=== PATIENT | male | born 1965 | race Caucasian/White ===

== ENCOUNTER 2021-01-03 16:53 | Inpatient (IN) | payer OTHER ==
[~2021-01-03] VITALS: Ht 177.8 cm; Wt 109.6 kg
--- NOTE | 2021-01-03 17:00 | NUR ---
THIS IS A 55 YO M BIB EMS FROM [facility], [place], OPERATED BY [facility] FOR COVID PNA, RF. PT PRESENTS ON BIPAP. PT TACHYCARDIC, FEBRILE, TACHYPNEIC. LACTIC 3.2 LENS BLOCKER. PIVX2 LENS BLOCKER. PT REPORTS TESTING POSITIVE FOR COVID ON SATURDAY LAST WEEK. HAS FELT SOB X10 DAYS. AT BEDSIDE. PT CONNECTED TO ALL MONITORING.
--- NOTE | 2021-01-03 17:10 | NUR ---
PER EMS SPOUSE CALLED EMS INTITIALLY R/T AMS. UPON ARRIVAL TO THE HOME EMS FOUND PT TO BE UNRESPONSIVE, HYPOXIC AND CYANTIC RESOLVED AFTER BAGGING. PT CURRENTLY A&OX4.
[2021-01-03] MEDS ORDERED: PIPERACILLIN/TAZO/PMX 3.375GM 50 ML ONE (17:23)
[2021-01-03] MEDS ORDERED: SODIUM CHLORIDE 0.9% 1,000ML IVBOLUS ONE ×2 (17:30→19:00)
[2021-01-03] MEDS ORDERED: SODIUM CHLORIDE FLUSH 10ML SYR IVF ONE (17:30)
[2021-01-03] MEDS ORDERED: PIPERACILLIN/TAZO/PMX 3.375GM 50 ML IV ONE (17:30)
[2021-01-03] MEDS ORDERED: AMLODIPINE PO (17:31)
--- NOTE | 2021-01-03 17:33 | NUR ---
PER BLOOD CULTURES DRAWNX2 PAINTER AND PAPERHANGER APPRENTICE.
--- NOTE | 2021-01-03 18:03 | NUR ---
PT TRANSPORTED TO CT W/ ASSISTANCE OF THIS RN, RT AND 2 ED TECHS. RETURNED TO ROOM W/O INCIDENT. PT USED A TOTAL OF 3.5 O2 TANKS FOR TRANSPORT.
[2021-01-03] MEDS ORDERED: OMNIPAQUE 350 MG/ML, 100ML BOTTLE ONE (18:09)
[2021-01-03] MEDS ORDERED: ALBUTEROL (18:26)
--- NOTE | 2021-01-03 18:29 | NUR ---
PTS SPOUSE SLIME [phone] UPDATED PER PT REQUEST.
[2021-01-03] MEDS ORDERED: HEPARIN 25,000 UNITS/250ML PMX 250 ML ONE (18:39)
[2021-01-03] MEDS ORDERED: HEPARIN 5,000 UNITS/ML, 1ML ONE ×2 (18:39→18:40)
[2021-01-03] MEDS: HEPARIN 25,000 UNITS/250ML PMX 250 ML IV PRN (18:55)
[2021-01-03] MEDS ORDERED: HEPARIN 5,000 UNITS/ML, 1ML IV ONE (19:00)
--- NOTE | 2021-01-03 19:01 | NUR ---
REPORT GIVEN O ELÍAS WAGGONER. HEPARIN VERIFIED AND STARTED PER EMAR. PT VSS UNCHANGED. PT A&OX4. RESTING ON Yaphie W/ CALL LIGHT IN REACH AND SIDE RAILS UPX2. NADN. AWAITING ADMIT.
--- NOTE | 2021-01-03 19:06 | NUR ---
6 HR ANTI XA ORDERED PER PROTOCOL.
--- NOTE | 2021-01-03 19:45 | NUR ---
PT RESTING IN BED, PT ON BIPAP AT 100% IN THE MID 80% WITH A RR IN HIGH 30'S TO LOW 40'S. RT, PRODUCTION OPERATIONS INSPECTOR AND PROVIDER AWARE OF PT O2 SATS. PT ON MONITOR WITH PT MEDICATED PER MAR
[2021-01-03] MEDS ORDERED: SODIUM CHLORIDE 0.9% 1,000 ML IV SCH (20:00)
[2021-01-03] MEDS ORDERED: PROMETHAZINE 25 MG/ML, 1ML IM PRN (20:00)
[2021-01-03] MEDS ORDERED: BISACODYL 10 MG SUPP PR PRN ×2 (20:00→22:30)
[2021-01-03] MEDS ORDERED: DOCUSATE 100 MG CAPSULE PO PRN (20:00)
[2021-01-03] MEDS ORDERED: ONDANSETRON ODT 4 MG PO PRN (20:00)
[2021-01-03] MEDS ORDERED: ONDANSETRON 2MG/ML, 2ML IVPush PRN (20:00)
[2021-01-03] MEDS ORDERED: FAMOTIDINE 20 MG/2 ML ONE (20:49)
[2021-01-03] MEDS ORDERED: ASCORBIC ACID 500 MG TABLET PO SCH (21:00)
[2021-01-03] MEDS ORDERED: DEXAMETHASONE 4 MG/ML, 1ML IVPush SCH (21:00)
[2021-01-03] MEDS ORDERED: FAMOTIDINE 20 MG/2 ML IVPush SCH (21:00)
[2021-01-03 21:04] VITALS: BP 152/90
[2021-01-03] MEDS ORDERED: ALBUTEROL SULFATE 2.5 MG/3 ML NPPB PRN (21:30)
[2021-01-03 21:38] LABS: MEAN CORPUSCULAR HEMOGLOBIN 33.8 pg (27.5-34.5); MEAN CORPUSCULAR HGB CONC 34.4 g/dL (33.2-36.2); MEAN PLATELET VOLUME 7.1 fL (7.4-10.4); PLATELET COUNT 153 x10^3/uL (130-400); RED BLOOD COUNT 4.35 x10^6/uL (4.38-5.82); RED CELL DISTRIBUTION WIDTH 13.1 % (9.4-14.8)
[2021-01-03 21:50] LABS: ALANINE AMINOTRANSFERASE 61 U/L (12-78); ALBUMIN 2.4 g/dL (3.4-5.0); ANION GAP 11 mmol/L (5-15); CALCIUM 7.8 mg/dL (8.5-10.1); CHLORIDE 107 mmol/L (98-107); CREATININE 2.06 mg/dL (0.7-1.3)
[2021-01-03] MEDS ORDERED: ROCURONIUM 10MG/ML,5ML ONE ×2 (21:52)
[2021-01-03 21:53] LABS: ALKALINE PHOSPHATASE 69 U/L (45-117); BILIRUBIN,TOTAL 1.4 mg/dL (0.2-1.0); TOTAL PROTEIN 7.1 g/dL (6.4-8.2)
[2021-01-03] MEDS ORDERED: CEFTRIAXONE PMX 2GM/50ML 50 ML IVPB SCH (22:00)
[2021-01-03 22:08] LABS: MD YES
[2021-01-03 22:09] LABS: BAND#(MANUAL) 0.53 x10^3/uL; BANDS%(MANUAL) 4 % (0-7); LYMPH#(MANUAL) 0.26 x10^3/uL (1-3.4); LYMPHS% (MANUAL) 2 % (22-44); METAMYELOCYTES% (MANUAL) 3 % (0-1); MONOS% (MANUAL) 3 % (2-9); SEG#(MANUAL) 11.62 x10^3/uL (1.8-6.8); SEGS% (MANUAL) 88 % (42-75)
[2021-01-03 22:10] LABS: ANISOCYTOSIS 1+; OVALOCYTES 1+; TEAR DROPS 1+
[2021-01-03 22:11] LABS: ECHINOCYTES 1+; SCHISTOCYTES 1+
[2021-01-03 22:12] LABS: <PLATELET ESTIMATE> ADEQUATE; <PLT MORPHOLOGY> NORMAL PLT MORPH; PMNS WITH VACUOLES 1+; TOXIC GRAN 1+
[2021-01-03 22:26] LABS: PELGER-HUET CELLS 1+
[2021-01-03] MEDS ORDERED: SENNA/DOCUSATE TABLET NG PRN (22:30)
[2021-01-03] MEDS ORDERED: LIDOCAINE-MPF 1%, 2ML ENDO PRN (22:30)
[2021-01-03] MEDS ORDERED: LACTULOSE 20 GM/30 ML UDC NG PRN (22:30)
[2021-01-03] MEDS ORDERED: PHARMACY MAY ADJ FOR RENAL FX MC SCH (22:30)
[2021-01-03] MEDS ORDERED: FENTANYL PF 1,000 MCG in SODIUM CHLORIDE 0.9% 80 ML IV PRN (22:30)
[2021-01-03] MEDS ORDERED: PROPOFOL 100 ML IV PRN (22:30)
[2021-01-03] MEDS ORDERED: SENNA 176 MG/5 ML ORAL SOL NG PRN (22:30)
[2021-01-03] MEDS: PROPOFOL 100 ML IV PRN (22:47)
[2021-01-03] MEDS: FENTANYL PF 1,000 MCG in SODIUM CHLORIDE 0.9% 80 ML IV PRN (22:48)
[2021-01-03] MEDS ORDERED: REMDESIVIR 200 MG in SODIUM CHLORIDE 0.9% 250 ML IVPB ONE (23:00)
[2021-01-03] MEDS ORDERED: AZITHROMYCIN 500 MG in SODIUM CHLORIDE 0.9% 250 ML IV SCH (23:00)
[2021-01-03] MEDS: ACETAMINOPHEN 325 MG TABLET PO PRN (23:19)
[2021-01-03 23:33] LABS: MICROSCOPIC INDICATED
[2021-01-04] MEDS: PROPOFOL 100 ML IV PRN ×4 (03:05→21:28)
[2021-01-04 04:29] LABS: BASOPHILS % (AUTO) 0 % (0-1); EOSINOPHILS % (AUTO) 0 % (1-7); LYMPHOCYTES % (AUTO) 3 % (22-44); MEAN CORPUSCULAR HEMOGLOBIN 33.5 pg (27.5-34.5); MEAN CORPUSCULAR HGB CONC 34.4 g/dL (33.2-36.2); MEAN PLATELET VOLUME 8.6 fL (7.4-10.4); MONOCYTES % (AUTO) 4 % (2-9); NEUTROPHILS % (AUTO) 93 % (42-75); PLATELET COUNT 193 x10^3/uL (130-400); RED BLOOD COUNT 4.18 x10^6/uL (4.38-5.82); RED CELL DISTRIBUTION WIDTH 13.3 % (9.4-14.8)
[2021-01-04 04:37] LABS: ALBUMIN 2.3 g/dL (3.4-5.0); ANION GAP 8 mmol/L (5-15); CALCIUM 7.4 mg/dL (8.5-10.1); CHLORIDE 110 mmol/L (98-107)
[2021-01-04 04:47] LABS: ALANINE AMINOTRANSFERASE 59 U/L (12-78); ALKALINE PHOSPHATASE 69 U/L (45-117); BILIRUBIN,TOTAL 0.4 mg/dL (0.2-1.0); CHOL/HDL RATIO 3.6; CHOLESTEROL, TOTAL 120 mg/dL (140-239); CREATININE 2.98 mg/dL (0.7-1.3); HDL CHOL % 28 % (26-37); HDL CHOLESTEROL (DIRECT) 33 mg/dL (40-60); LDL CHOLESTEROL,CALCULATED 54 mg/dL (54-169); LDL/HDL RATIO 1.6 (0.5-3.0); TOTAL PROTEIN 6.8 g/dL (6.4-8.2); TRIGLYCERIDES 164 mg/dL (50-200); VLDL CHOLESTEROL 33 mg/dL (0-25)
[2021-01-04 05:14] LABS: MD SCAN
[2021-01-04] MEDS ORDERED: ONDANSETRON 2MG/ML, 2ML IV PRN (08:00)
[2021-01-04] MEDS: CHOLECALCIFEROL 5,000u TAB PO SCH (08:49)
[2021-01-04] MEDS: ASCORBIC ACID 500 MG TABLET PO SCH ×2 (08:50→17:00)
[2021-01-04] MEDS: ZINC SULFATE 220 MG CAPSULE PO SCH (08:50)
[2021-01-04] MEDS: THIAMINE 100MG TABLET PO SCH (08:50)
[2021-01-04] MEDS ORDERED: CHOLECALCIFEROL 5,000u TAB PO SCH (09:00)
[2021-01-04] MEDS ORDERED: ZINC SULFATE 220 MG CAPSULE PO SCH (09:00)
[2021-01-04] MEDS ORDERED: TOCILIZUMAB 800 MG in SODIUM CHLORIDE 0.9% 60 ML IVPB ONE (09:30)
--- NOTE | 2021-01-04 09:45 | NUR ---
TF per RD recs (01/04): Vital HP w/ end goal rate of 60mL/hr (on propofol); 65mL/hr (OFF propofol) Addendum: 01/04/21 at [address] Amended: Links added.
[2021-01-04] MEDS: SODIUM CHLORIDE 0.9% 1,000 ML IV SCH (10:30)
[2021-01-04] MEDS: FENTANYL PF 1,000 MCG in SODIUM CHLORIDE 0.9% 80 ML IV PRN (18:05)
[2021-01-04] MEDS: HEPARIN 25,000 UNITS/250ML PMX 250 ML IV PRN (18:06)
[2021-01-04] MEDS: FAMOTIDINE 20 MG/2 ML IVPush SCH (21:27)
[2021-01-04] MEDS: CEFTRIAXONE PMX 2GM/50ML 50 ML IVPB SCH (21:27)
[2021-01-04] MEDS ORDERED: REMDESIVIR 100 MG in SODIUM CHLORIDE 0.9% 250 ML IVPB SCH (23:00)
[2021-01-04] MEDS: DEXAMETHASONE 4 MG/ML, 1ML IVPush SCH (23:12)
[2021-01-04] MEDS: REMDESIVIR 50 MG in SODIUM CHLORIDE 0.9% 250 ML IVPB SCH (23:12)
[2021-01-05] MEDS: PROPOFOL 100 ML IV PRN ×6 (00:45→22:26)
[2021-01-05] MEDS: AZITHROMYCIN 500 MG in SODIUM CHLORIDE 0.9% 250 ML IV SCH (02:41)
[2021-01-05 05:34] LABS: BASOPHILS % (AUTO) 1 % (0-1); EOSINOPHILS % (AUTO) 0 % (1-7); LYMPHOCYTES % (AUTO) 2 % (22-44); MEAN CORPUSCULAR HEMOGLOBIN 33.7 pg (27.5-34.5); MEAN CORPUSCULAR HGB CONC 34.1 g/dL (33.2-36.2); MEAN PLATELET VOLUME 9.4 fL (7.4-10.4); MONOCYTES % (AUTO) 4 % (2-9); NEUTROPHILS % (AUTO) 94 % (42-75); PLATELET COUNT 208 x10^3/uL (130-400); RED BLOOD COUNT 3.68 x10^6/uL (4.38-5.82); RED CELL DISTRIBUTION WIDTH 13.8 % (9.4-14.8)
[2021-01-05 05:47] LABS: MD SCAN
[2021-01-05] MEDS: HEPARIN 5,000 UNITS/ML, 1ML IV PRN ×2 (06:08→18:10)
[2021-01-05 06:58] LABS: ALANINE AMINOTRANSFERASE 64 U/L (12-78); ALBUMIN 2.3 g/dL (3.4-5.0); ANION GAP 14 mmol/L (5-15); CALCIUM 7.4 mg/dL (8.5-10.1); CHLORIDE 111 mmol/L (98-107)
[2021-01-05 07:00] LABS: ALKALINE PHOSPHATASE 66 U/L (45-117); BILIRUBIN,TOTAL 0.3 mg/dL (0.2-1.0); CREATININE 5.64 mg/dL (0.7-1.3); TOTAL PROTEIN 6.3 g/dL (6.4-8.2)
[2021-01-05] MEDS: INSULIN LISPRO 100 UNITS/ML, PEN SQ-INSULIN SCH ×4 (07:58→21:17)
[2021-01-05] MEDS: ASCORBIC ACID 500 MG TABLET PO SCH ×2 (07:58→17:22)
[2021-01-05] MEDS: THIAMINE 100MG TABLET PO SCH (07:59)
[2021-01-05] MEDS: CHOLECALCIFEROL 5,000u TAB PO SCH (07:59)
[2021-01-05] MEDS: ZINC SULFATE 220 MG CAPSULE PO SCH (07:59)
[2021-01-05] MEDS: FENTANYL PF 1,000 MCG in SODIUM CHLORIDE 0.9% 80 ML IV PRN ×3 (09:54→23:59)
[2021-01-05] MEDS ORDERED: ALBUMIN HUMAN 25% 100 ML ONE ×2 (11:51→12:06)
[2021-01-05] MEDS: NOREPINEPHRINE 8 MG in SODIUM CHLORIDE 0.9% 242 ML IV PRN (11:53)
[2021-01-05] MEDS: SODIUM CHLORIDE 0.9% 1,000 ML IV SCH (12:08)
[2021-01-05] MEDS: HEPARIN 25,000 UNITS/250ML PMX 250 ML IV PRN (15:43)
[2021-01-05] MEDS: FAMOTIDINE 20 MG/2 ML IVPush SCH (21:17)
[2021-01-05] MEDS: CEFTRIAXONE PMX 2GM/50ML 50 ML IVPB SCH (21:18)
[2021-01-05] MEDS: REMDESIVIR 50 MG in SODIUM CHLORIDE 0.9% 250 ML IVPB SCH (23:59)
[2021-01-05] MEDS: DEXAMETHASONE 4 MG/ML, 1ML IVPush SCH (23:59)
[2021-01-06] MEDS: AZITHROMYCIN 500 MG in SODIUM CHLORIDE 0.9% 250 ML IV SCH (02:03)
[2021-01-06] MEDS: PROPOFOL 100 ML IV PRN ×4 (02:03→14:06)
[2021-01-06] MEDS: SODIUM CHLORIDE 0.9% 1,000 ML IV SCH ×2 (03:08→17:09)
[2021-01-06 04:07] LABS: BASOPHILS % (AUTO) 0 % (0-1); EOSINOPHILS % (AUTO) 0 % (1-7); LYMPHOCYTES % (AUTO) 1 % (22-44); MEAN CORPUSCULAR HEMOGLOBIN 33.2 pg (27.5-34.5); MEAN CORPUSCULAR HGB CONC 33.2 g/dL (33.2-36.2); MEAN PLATELET VOLUME 9.9 fL (7.4-10.4); MONOCYTES % (AUTO) 2 % (2-9); NEUTROPHILS % (AUTO) 97 % (42-75); PLATELET COUNT 248 x10^3/uL (130-400); RED CELL DISTRIBUTION WIDTH 14.2 % (9.4-14.8)
[2021-01-06 04:08] LABS: MD NO
[2021-01-06] MEDS: FENTANYL PF 2,500 MCG in SODIUM CHLORIDE 0.9% 200 ML IV PRN ×2 (04:13→14:09)
[2021-01-06 04:18] LABS: ANION GAP 12 mmol/L (5-15); CALCIUM 7.2 mg/dL (8.5-10.1); CHLORIDE 106 mmol/L (98-107); CREATININE 5.41 mg/dL (0.7-1.3)
[2021-01-06 04:19] LABS: TRIGLYCERIDES 298 mg/dL (50-200)
[2021-01-06] MEDS: INSULIN LISPRO 100 UNITS/ML, PEN SQ-INSULIN SCH ×4 (04:29→19:54)
[2021-01-06] MEDS: CHOLECALCIFEROL 5,000u TAB PO SCH (07:33)
[2021-01-06] MEDS: THIAMINE 100MG TABLET PO SCH (07:33)
[2021-01-06] MEDS: ASCORBIC ACID 500 MG TABLET PO SCH ×2 (07:33→17:09)
[2021-01-06] MEDS: ZINC SULFATE 220 MG CAPSULE PO SCH (07:33)
[2021-01-06] MEDS: HEPARIN 5,000 UNITS/ML, 1ML IV PRN (07:34)
[2021-01-06] MEDS: HEPARIN 25,000 UNITS/250ML PMX 250 ML IV PRN (07:36)
[2021-01-06] MEDS ORDERED: EPINEPHRINE 1 MG/ML, 1ML ONE (08:26)
[2021-01-06] MEDS ORDERED: ATROPINE SYRINGE 0.1 MG/ML, 10ML ONE (08:27)
[2021-01-06] MEDS: MIDAZOLAM HCL 50 MG in SODIUM CHLORIDE 0.9% 40 ML IV PRN ×2 (09:34→15:22)
[2021-01-06] MEDS ORDERED: LIDOCAINE 1%, 10ML ONE (15:24)
[2021-01-06] MEDS: ATROPINE SYRINGE 0.1 MG/ML, 10ML IVPush PRN ×2 (17:14→17:54)
[2021-01-06] MEDS: FAMOTIDINE 20 MG/2 ML IVPush SCH (21:39)
[2021-01-06] MEDS: CEFTRIAXONE PMX 2GM/50ML 50 ML IVPB SCH (22:23)
[2021-01-07] MEDS: REMDESIVIR 50 MG in SODIUM CHLORIDE 0.9% 250 ML IVPB SCH (00:12)
[2021-01-07] MEDS: DEXAMETHASONE 4 MG/ML, 1ML IVPush SCH (00:13)
[2021-01-07] MEDS: FENTANYL PF 2,500 MCG in SODIUM CHLORIDE 0.9% 200 ML IV PRN ×2 (00:15→10:55)
[2021-01-07] MEDS: HEPARIN 5,000 UNITS/ML, 1ML IV PRN (01:27)
[2021-01-07] MEDS: MIDAZOLAM HCL 50 MG in SODIUM CHLORIDE 0.9% 40 ML IV PRN ×3 (01:28→22:40)
[2021-01-07] MEDS: AZITHROMYCIN 500 MG in SODIUM CHLORIDE 0.9% 250 ML IV SCH (02:48)
[2021-01-07] MEDS: INSULIN LISPRO 100 UNITS/ML, PEN SQ-INSULIN SCH ×4 (04:30→21:17)
[2021-01-07 04:48] LABS: BASOPHILS % (AUTO) 0 % (0-1); EOSINOPHILS % (AUTO) 0 % (1-7); LYMPHOCYTES % (AUTO) 1 % (22-44); MEAN CORPUSCULAR HEMOGLOBIN 33.3 pg (27.5-34.5); MEAN CORPUSCULAR HGB CONC 33.5 g/dL (33.2-36.2); MEAN PLATELET VOLUME 10.3 fL (7.4-10.4); MONOCYTES % (AUTO) 2 % (2-9); NEUTROPHILS % (AUTO) 96 % (42-75); PLATELET COUNT 236 x10^3/uL (130-400); RED BLOOD COUNT 3.41 x10^6/uL (4.38-5.82); RED CELL DISTRIBUTION WIDTH 13.9 % (9.4-14.8)
[2021-01-07 04:56] LABS: ANION GAP 11 mmol/L (5-15); CHLORIDE 107 mmol/L (98-107); CREATININE 5.36 mg/dL (0.7-1.3)
[2021-01-07] MEDS ORDERED: SODIUM BICARBONATE 1 MEQ/ML, 50ML VIAL IVPush ONE (05:00)
[2021-01-07] MEDS ORDERED: SODIUM BICARB 8.4%, 50ML SYRINGE IVPush ONE (05:00)
[2021-01-07 05:50] LABS: ANISOCYTOSIS 1+; MD MORPH REVIEW ONLY
[2021-01-07 05:51] LABS: SCHISTOCYTES 1+
[2021-01-07 05:52] LABS: <PLATELET ESTIMATE> ADEQUATE; <PLT MORPHOLOGY> NORMAL PLT MORPH; ECHINOCYTES 1+
[2021-01-07] MEDS: CHOLECALCIFEROL 5,000u TAB PO SCH (08:50)
[2021-01-07] MEDS: THIAMINE 100MG TABLET PO SCH (08:50)
[2021-01-07] MEDS: ASCORBIC ACID 500 MG TABLET PO SCH ×2 (08:51→16:41)
[2021-01-07] MEDS: SODIUM CHLORIDE 0.9% 1,000 ML IV SCH ×2 (08:51→22:40)
[2021-01-07] MEDS: ZINC SULFATE 220 MG CAPSULE PO SCH (08:51)
[2021-01-07] MEDS: SENNA/DOCUSATE TABLET PO/NG SCH (08:52)
[2021-01-07] MEDS: HEPARIN 25,000 UNITS/250ML PMX 250 ML IV PRN (16:45)
[2021-01-07] MEDS: FAMOTIDINE 20 MG/2 ML IVPush SCH (21:17)
[2021-01-07] MEDS: CEFTRIAXONE PMX 2GM/50ML 50 ML IVPB SCH (22:40)
[2021-01-08] MEDS: DEXAMETHASONE 4 MG/ML, 1ML IVPush SCH ×2 (01:48→22:12)
[2021-01-08] MEDS: INSULIN LISPRO 100 UNITS/ML, PEN SQ-INSULIN SCH ×4 (03:25→19:58)
[2021-01-08] MEDS: AZITHROMYCIN 500 MG in SODIUM CHLORIDE 0.9% 250 ML IV SCH (03:26)
[2021-01-08 03:50] LABS: MEAN CORPUSCULAR HEMOGLOBIN 33.4 pg (27.5-34.5); MEAN CORPUSCULAR HGB CONC 33.5 g/dL (33.2-36.2); MEAN PLATELET VOLUME 10.4 fL (7.4-10.4); PLATELET COUNT 234 x10^3/uL (130-400); RED BLOOD COUNT 3.34 x10^6/uL (4.38-5.82)
[2021-01-08 03:56] LABS: ANION GAP 10 mmol/L (5-15); CALCIUM 7.3 mg/dL (8.5-10.1); CHLORIDE 107 mmol/L (98-107); CREATININE 4.94 mg/dL (0.7-1.3)
[2021-01-08 04:25] LABS: MD YES
[2021-01-08 04:33] LABS: ACANTHOCYTES 1+; ANISOCYTOSIS 1+; BAND#(MANUAL) 0.82 x10^3/uL; BANDS%(MANUAL) 9 % (0-7); EOS#(MANUAL) 0.09 x10^3/uL (0.0-0.4); EOS% (MANUAL) 1 % (1-7); LYMPH#(MANUAL) 0.36 x10^3/uL (1-3.4); LYMPHS% (MANUAL) 4 % (22-44); METAMYELOCYTES# (MANUAL) 0.09 x10^3/uL (0-0); METAMYELOCYTES% (MANUAL) 1 % (0-1); MONOS#(MANUAL) 0.09 x10^3/uL (0.3-2.7); MONOS% (MANUAL) 1 % (2-9); MYELOCYTES# (MANUAL) 0.09 x10^3/uL (0-0); MYELOCYTES% (MANUAL) 1 % (0-0); PELGER-HUET CELLS 1+; SEG#(MANUAL) 7.55 x10^3/uL (1.8-6.8); SEGS% (MANUAL) 83 % (42-75)
[2021-01-08 04:34] LABS: ECHINOCYTES 1+; PMNS WITH VACUOLES 1+; SCHISTOCYTES 1+
[2021-01-08 04:35] LABS: <PLATELET ESTIMATE> ADEQUATE; <PLT MORPHOLOGY> NORMAL PLT MORPH
[2021-01-08] MEDS: MIDAZOLAM HCL 100 MG in SODIUM CHLORIDE 0.9% 80 ML IV PRN ×3 (06:11→23:03)
[2021-01-08] MEDS: FENTANYL PF 2,500 MCG in SODIUM CHLORIDE 0.9% 200 ML IV PRN ×3 (06:49→23:04)
[2021-01-08] MEDS: CHOLECALCIFEROL 5,000u TAB PO SCH (08:39)
[2021-01-08] MEDS: THIAMINE 100MG TABLET PO SCH (08:39)
[2021-01-08] MEDS: ASCORBIC ACID 500 MG TABLET PO SCH ×2 (08:39→17:27)
[2021-01-08] MEDS: ZINC SULFATE 220 MG CAPSULE PO SCH (08:39)
[2021-01-08] MEDS: SENNA/DOCUSATE TABLET PO/NG SCH (08:40)
[2021-01-08 09:38] LABS: CLOSTRIDIUM DIFFICILE ANTIGEN NEGATIVE; CLOSTRIDIUM DIFFICILE TOXIN NEGATIVE (Negative)
[2021-01-08] MEDS: HEPARIN 25,000 UNITS/250ML PMX 250 ML IV PRN (09:44)
[2021-01-08] MEDS: ALBUTEROL SULFATE 2.5 MG/3 ML NPPB SCH ×4 (10:10→23:19)
[2021-01-08 12:35] LABS: RAPID INFLUENZA A Negative (Negative); RAPID INFLUENZA B Negative (Negative)
[2021-01-08] MEDS: ALBUMIN HUMAN 25% 100 ML IV PRN ×2 (13:04→14:11)
[2021-01-08] MEDS: SODIUM CHLORIDE 0.9% 1,000 ML IV SCH (13:39)
[2021-01-08] MEDS: FAMOTIDINE 20 MG/2 ML IVPush SCH (19:59)
[2021-01-08] MEDS: CEFTRIAXONE PMX 2GM/50ML 50 ML IVPB SCH (22:12)
[2021-01-08] MEDS ORDERED: VECURONIUM 10 MG ONE (23:50)
[2021-01-09] MEDS ORDERED: VECURONIUM 10 MG IVPush ONE
[2021-01-09] MEDS: HEPARIN 25,000 UNITS/250ML PMX 250 ML IV PRN ×2 (01:08→17:53)
[2021-01-09] MEDS: SODIUM CHLORIDE 0.9% 1,000 ML IV SCH ×2 (01:10→14:37)
[2021-01-09] MEDS: ALBUTEROL SULFATE 2.5 MG/3 ML NPPB SCH ×6 (02:40→22:15)
[2021-01-09] MEDS: INSULIN LISPRO 100 UNITS/ML, PEN SQ-INSULIN SCH ×4 (03:00→20:43)
[2021-01-09 03:48] LABS: MEAN CORPUSCULAR HEMOGLOBIN 33.2 pg (27.5-34.5); MEAN CORPUSCULAR HGB CONC 33.6 g/dL (33.2-36.2); MEAN PLATELET VOLUME 9.6 fL (7.4-10.4); PLATELET COUNT 238 x10^3/uL (130-400); RED BLOOD COUNT 3.14 x10^6/uL (4.38-5.82); RED CELL DISTRIBUTION WIDTH 13.6 % (9.4-14.8)
[2021-01-09 03:59] LABS: ANION GAP 16 mmol/L (5-15); CALCIUM 7.2 mg/dL (8.5-10.1); CHLORIDE 103 mmol/L (98-107); CREATININE 6.49 mg/dL (0.7-1.3); TRIGLYCERIDES 159 mg/dL (50-200)
[2021-01-09 04:11] LABS: MD YES
[2021-01-09 04:15] LABS: BAND#(MANUAL) 0.63 x10^3/uL; BANDS%(MANUAL) 6 % (0-7); EOS#(MANUAL) 0.21 x10^3/uL (0.0-0.4); EOS% (MANUAL) 2 % (1-7); LYMPH#(MANUAL) 0.21 x10^3/uL (1-3.4); LYMPHS% (MANUAL) 2 % (22-44); MONOS#(MANUAL) 0.42 x10^3/uL (0.3-2.7); MONOS% (MANUAL) 4 % (2-9); MYELOCYTES# (MANUAL) 0.21 x10^3/uL (0-0); MYELOCYTES% (MANUAL) 2 % (0-0); SEG#(MANUAL) 8.82 x10^3/uL (1.8-6.8); SEGS% (MANUAL) 84 % (42-75)
[2021-01-09 04:16] LABS: ANISOCYTOSIS 1+
[2021-01-09 04:17] LABS: ECHINOCYTES 1+; SCHISTOCYTES 1+
[2021-01-09 04:18] LABS: <PLATELET ESTIMATE> ADEQUATE; <PLT MORPHOLOGY> NORMAL PLT MORPH
[2021-01-09] MEDS: VECURONIUM 50 MG in SODIUM CHLORIDE 0.9% 50 ML IV PRN ×3 (05:20→23:08)
[2021-01-09] MEDS: ASCORBIC ACID 500 MG TABLET PO SCH ×2 (08:49→17:51)
[2021-01-09] MEDS: CHOLECALCIFEROL 5,000u TAB PO SCH (08:49)
[2021-01-09] MEDS: ZINC SULFATE 220 MG CAPSULE PO SCH (08:49)
[2021-01-09] MEDS: THIAMINE 100MG TABLET PO SCH (08:50)
[2021-01-09] MEDS: SENNA/DOCUSATE TABLET PO/NG SCH (08:50)
[2021-01-09] MEDS: FENTANYL PF 2,500 MCG in SODIUM CHLORIDE 0.9% 200 ML IV PRN (08:54)
[2021-01-09] MEDS: MIDAZOLAM HCL 100 MG in SODIUM CHLORIDE 0.9% 80 ML IV PRN (10:27)
[2021-01-09] MEDS: FAMOTIDINE 20 MG/2 ML IVPush SCH (20:37)
[2021-01-09] MEDS: DEXAMETHASONE 4 MG/ML, 1ML IVPush SCH (23:07)
[2021-01-09] MEDS: CEFTRIAXONE PMX 2GM/50ML 50 ML IVPB SCH (23:07)
[2021-01-10] MEDS: ALBUTEROL SULFATE 2.5 MG/3 ML NPPB SCH ×6 (02:21→23:00)
[2021-01-10] MEDS: INSULIN LISPRO 100 UNITS/ML, PEN SQ-INSULIN SCH ×4 (03:00→21:50)
[2021-01-10] MEDS: MIDAZOLAM HCL 100 MG in SODIUM CHLORIDE 0.9% 80 ML IV PRN ×2 (03:22→21:50)
[2021-01-10] MEDS: SODIUM CHLORIDE 0.9% 1,000 ML IV SCH ×2 (03:30→18:12)
[2021-01-10 03:45] LABS: BASOPHILS % (AUTO) 0 % (0-1); EOSINOPHILS % (AUTO) 3 % (1-7); LYMPHOCYTES % (AUTO) 2 % (22-44); MEAN CORPUSCULAR HEMOGLOBIN 33.2 pg (27.5-34.5); MEAN CORPUSCULAR HGB CONC 34.1 g/dL (33.2-36.2); MEAN PLATELET VOLUME 9.8 fL (7.4-10.4); MONOCYTES % (AUTO) 3 % (2-9); NEUTROPHILS % (AUTO) 92 % (42-75); PLATELET COUNT 254 x10^3/uL (130-400); RED BLOOD COUNT 3.21 x10^6/uL (4.38-5.82)
[2021-01-10 03:47] LABS: ANION GAP 11 mmol/L (5-15); CALCIUM 7.8 mg/dL (8.5-10.1); CHLORIDE 106 mmol/L (98-107); CREATININE 4.21 mg/dL (0.7-1.3)
[2021-01-10 04:09] LABS: MD SCAN
[2021-01-10] MEDS: VECURONIUM 50 MG in SODIUM CHLORIDE 0.9% 50 ML IV PRN ×3 (07:37→22:36)
[2021-01-10] MEDS: CHOLECALCIFEROL 5,000u TAB PO SCH (08:18)
[2021-01-10] MEDS: THIAMINE 100MG TABLET PO SCH (08:18)
[2021-01-10] MEDS: ASCORBIC ACID 500 MG TABLET PO SCH ×2 (08:18→18:10)
[2021-01-10] MEDS: ZINC SULFATE 220 MG CAPSULE PO SCH (08:18)
[2021-01-10] MEDS: SENNA/DOCUSATE TABLET PO/NG SCH (08:18)
[2021-01-10] MEDS: FENTANYL PF 2,500 MCG in SODIUM CHLORIDE 0.9% 200 ML IV PRN (10:23)
[2021-01-10] MEDS: morphine SULFATE 10 MG/ML, 1ML IVPush PRN (10:30)
[2021-01-10] MEDS: HEPARIN 25,000 UNITS/250ML PMX 250 ML IV PRN (11:16)
[2021-01-10] MEDS: FAMOTIDINE 20 MG/2 ML IVPush SCH (21:50)
[2021-01-10] MEDS: DEXAMETHASONE 4 MG/ML, 1ML IVPush SCH (21:51)
[2021-01-11] MEDS: ALBUTEROL SULFATE 2.5 MG/3 ML NPPB SCH ×6 (03:00→22:28)
[2021-01-11] MEDS: FENTANYL PF 2,500 MCG in SODIUM CHLORIDE 0.9% 200 ML IV PRN ×2 (03:14→22:35)
[2021-01-11] MEDS: VECURONIUM 50 MG in SODIUM CHLORIDE 0.9% 50 ML IV PRN ×3 (03:14→19:03)
[2021-01-11 03:57] LABS: BASOPHILS % (AUTO) 0 % (0-1); EOSINOPHILS % (AUTO) 2 % (1-7); LYMPHOCYTES % (AUTO) 2 % (22-44); MEAN CORPUSCULAR HEMOGLOBIN 33.1 pg (27.5-34.5); MEAN CORPUSCULAR HGB CONC 33.6 g/dL (33.2-36.2); MEAN PLATELET VOLUME 9.7 fL (7.4-10.4); MONOCYTES % (AUTO) 3 % (2-9); NEUTROPHILS % (AUTO) 93 % (42-75); PLATELET COUNT 269 x10^3/uL (130-400); RED BLOOD COUNT 3.19 x10^6/uL (4.38-5.82); RED CELL DISTRIBUTION WIDTH 13.9 % (9.4-14.8)
[2021-01-11 04:02] LABS: ANION GAP 12 mmol/L (5-15); CHLORIDE 107 mmol/L (98-107); CREATININE 4.77 mg/dL (0.7-1.3)
[2021-01-11] MEDS: HEPARIN 25,000 UNITS/250ML PMX 250 ML IV PRN ×2 (04:15→22:37)
[2021-01-11 04:21] LABS: MD SCAN
[2021-01-11] MEDS: INSULIN LISPRO 100 UNITS/ML, PEN SQ-INSULIN SCH ×4 (04:24→21:21)
[2021-01-11] MEDS: SENNA/DOCUSATE TABLET PO/NG SCH (09:00)
[2021-01-11] MEDS: CHOLECALCIFEROL 5,000u TAB PO SCH (09:31)
[2021-01-11] MEDS: THIAMINE 100MG TABLET PO SCH (09:31)
[2021-01-11] MEDS: ASCORBIC ACID 500 MG TABLET PO SCH ×2 (09:31→17:56)
[2021-01-11] MEDS: SODIUM CHLORIDE 0.9% 1,000 ML IV SCH ×2 (09:31→21:21)
[2021-01-11] MEDS: ZINC SULFATE 220 MG CAPSULE PO SCH (09:31)
[2021-01-11] MEDS: FAMOTIDINE 20 MG/2 ML IVPush SCH (21:21)
[2021-01-11] MEDS: MIDAZOLAM HCL 100 MG in SODIUM CHLORIDE 0.9% 80 ML IV PRN (22:35)
[2021-01-12] MEDS: DEXAMETHASONE 4 MG/ML, 1ML IVPush SCH ×2 (00:01→22:58)
[2021-01-12] MEDS: VECURONIUM 50 MG in SODIUM CHLORIDE 0.9% 50 ML IV PRN ×4 (00:21→23:08)
[2021-01-12] MEDS: ALBUTEROL SULFATE 2.5 MG/3 ML NPPB SCH ×6 (02:37→23:00)
[2021-01-12] MEDS: INSULIN LISPRO 100 UNITS/ML, PEN SQ-INSULIN SCH ×4 (03:35→20:54)
[2021-01-12 03:59] LABS: MEAN CORPUSCULAR HEMOGLOBIN 33.3 pg (27.5-34.5); MEAN CORPUSCULAR HGB CONC 34.3 g/dL (33.2-36.2); MEAN PLATELET VOLUME 9.5 fL (7.4-10.4); PLATELET COUNT 310 x10^3/uL (130-400); RED BLOOD COUNT 3.54 x10^6/uL (4.38-5.82); RED CELL DISTRIBUTION WIDTH 13.8 % (9.4-14.8)
[2021-01-12 04:08] LABS: ANION GAP 9 mmol/L (5-15); CALCIUM 8.3 mg/dL (8.5-10.1); CHLORIDE 106 mmol/L (98-107)
[2021-01-12 04:09] LABS: CREATININE 2.78 mg/dL (0.7-1.3); TRIGLYCERIDES 190 mg/dL (50-200)
[2021-01-12 04:44] LABS: MD YES
[2021-01-12 04:47] LABS: BAND#(MANUAL) 0.61 x10^3/uL; BANDS%(MANUAL) 5 % (0-7); LYMPH#(MANUAL) 0.37 x10^3/uL (1-3.4); LYMPHS% (MANUAL) 3 % (22-44); METAMYELOCYTES# (MANUAL) 0.61 x10^3/uL (0-0); METAMYELOCYTES% (MANUAL) 5 % (0-1); MYELOCYTES# (MANUAL) 0.12 x10^3/uL (0-0); MYELOCYTES% (MANUAL) 1 % (0-0); SEG#(MANUAL) 10.49 x10^3/uL (1.8-6.8); SEGS% (MANUAL) 86 % (42-75)
[2021-01-12 04:48] LABS: ANISOCYTOSIS 1+
[2021-01-12 04:49] LABS: <PLATELET ESTIMATE> ADEQUATE; LARGE PLATELETS 1+; SCHISTOCYTES 1+
[2021-01-12] MEDS: hydrALAzine 20 MG/ML, 1ML IVPush PRN ×2 (05:25→13:04)
[2021-01-12] MEDS: SENNA/DOCUSATE TABLET PO/NG SCH (08:46)
[2021-01-12] MEDS: CHOLECALCIFEROL 5,000u TAB PO SCH (08:46)
[2021-01-12] MEDS: THIAMINE 100MG TABLET PO SCH (08:46)
[2021-01-12] MEDS: ASCORBIC ACID 500 MG TABLET PO SCH ×2 (08:46→16:48)
[2021-01-12] MEDS: ZINC SULFATE 220 MG CAPSULE PO SCH (08:46)
[2021-01-12] MEDS: SODIUM CHLORIDE 0.9% 1,000 ML IV SCH ×2 (11:03→23:09)
[2021-01-12] MEDS: HEPARIN 25,000 UNITS/250ML PMX 250 ML IV PRN (13:34)
[2021-01-12] MEDS: FENTANYL PF 2,500 MCG in SODIUM CHLORIDE 0.9% 200 ML IV PRN (16:48)
[2021-01-12] MEDS: MIDAZOLAM HCL 100 MG in SODIUM CHLORIDE 0.9% 80 ML IV PRN (19:52)
[2021-01-12] MEDS: FAMOTIDINE 20 MG/2 ML IVPush SCH (20:42)
[2021-01-13] MEDS: hydrALAzine 20 MG/ML, 1ML IVPush PRN ×2 (00:35→11:45)
[2021-01-13] MEDS: morphine SULFATE 10 MG/ML, 1ML IVPush PRN (01:07)
[2021-01-13] MEDS: INSULIN LISPRO 100 UNITS/ML, PEN SQ-INSULIN SCH ×4 (03:00→21:00)
[2021-01-13] MEDS: ALBUTEROL SULFATE 2.5 MG/3 ML NPPB SCH ×7 (03:00→23:00)
[2021-01-13 03:11] LABS: MEAN CORPUSCULAR HEMOGLOBIN 33.2 pg (27.5-34.5); MEAN CORPUSCULAR HGB CONC 33.5 g/dL (33.2-36.2); MEAN PLATELET VOLUME 9.2 fL (7.4-10.4); PLATELET COUNT 287 x10^3/uL (130-400); RED CELL DISTRIBUTION WIDTH 13.9 % (9.4-14.8)
[2021-01-13 03:37] LABS: MD YES
[2021-01-13 03:41] LABS: <PLATELET ESTIMATE> ADEQUATE; <PLT MORPHOLOGY> NORMAL PLT MORPH; ANION GAP 11 mmol/L (5-15); BAND#(MANUAL) 0.79 x10^3/uL; BANDS%(MANUAL) 6 % (0-7); CALCIUM 8.5 mg/dL (8.5-10.1); CHLORIDE 111 mmol/L (98-107); CREATININE 2.73 mg/dL (0.7-1.3); EOS#(MANUAL) 0.13 x10^3/uL (0.0-0.4); EOS% (MANUAL) 1 % (1-7); LYMPH#(MANUAL) 0.26 x10^3/uL (1-3.4); LYMPHS% (MANUAL) 2 % (22-44); METAMYELOCYTES# (MANUAL) 0.53 x10^3/uL (0-0); METAMYELOCYTES% (MANUAL) 4 % (0-1); MONOS#(MANUAL) 0.53 x10^3/uL (0.3-2.7); MONOS% (MANUAL) 4 % (2-9); SEG#(MANUAL) 10.96 x10^3/uL (1.8-6.8); SEGS% (MANUAL) 83 % (42-75)
[2021-01-13 03:43] LABS: ANISOCYTOSIS 1+
[2021-01-13] MEDS: VECURONIUM 50 MG in SODIUM CHLORIDE 0.9% 50 ML IV PRN ×3 (07:23→21:08)
[2021-01-13] MEDS: ASCORBIC ACID 500 MG TABLET PO SCH (08:45)
[2021-01-13] MEDS: THIAMINE 100MG TABLET PO SCH (08:46)
[2021-01-13] MEDS: CHOLECALCIFEROL 5,000u TAB PO SCH (08:46)
[2021-01-13] MEDS: ZINC SULFATE 220 MG CAPSULE PO SCH (08:47)
[2021-01-13] MEDS: SENNA/DOCUSATE TABLET PO/NG SCH (08:47)
[2021-01-13] MEDS: FENTANYL PF 2,500 MCG in SODIUM CHLORIDE 0.9% 200 ML IV PRN (10:02)
[2021-01-13] MEDS: MIDAZOLAM HCL 100 MG in SODIUM CHLORIDE 0.9% 80 ML IV PRN (14:05)
[2021-01-13] MEDS: SODIUM CHLORIDE 0.9% 1,000 ML IV SCH (14:06)
--- NOTE | 2021-01-13 14:09 | NUR ---
TF per RD recs 01/13: Vhile on paralytic, recommend to advance TF Vital HP by 10mL/hr [id number] to goal of 65mL/hr (OFF propofol) as tolerated w/ monitoring for TF intolerance via signs of abdomen distention, ileus, etc. Addendum: 01/13/21 at [address] Amended: Links added.
[2021-01-13] MEDS: ALBUMIN HUMAN 25% 100 ML IV PRN ×2 (20:55→22:35)
[2021-01-13] MEDS: FAMOTIDINE 20 MG/2 ML IVPush SCH (22:03)
[2021-01-13] MEDS: DEXAMETHASONE 4 MG/ML, 1ML IVPush SCH (22:36)
[2021-01-14] MEDS: LABETALOL 5MG/ML, 20ML IVPush PRN (01:06)
[2021-01-14] MEDS: hydrALAzine 20 MG/ML, 1ML IVPush PRN (01:58)
[2021-01-14] MEDS ORDERED: LABETALOL 5MG/ML, 20ML IVPush ONE (02:30)
[2021-01-14] MEDS: ALBUTEROL SULFATE 2.5 MG/3 ML NPPB SCH ×5 (02:43→22:43)
[2021-01-14] MEDS: INSULIN LISPRO 100 UNITS/ML, PEN SQ-INSULIN SCH ×5 (03:05→20:29)
[2021-01-14] MEDS: VECURONIUM 50 MG in SODIUM CHLORIDE 0.9% 50 ML IV PRN ×4 (03:05→19:24)
[2021-01-14] MEDS: ARTIFICIAL TEARS OINT 3.5 GM EACHEYE PRN ×3 (03:14→22:58)
[2021-01-14 03:30] LABS: ANION GAP 6 mmol/L (5-15); CALCIUM 8.8 mg/dL (8.5-10.1); CHLORIDE 105 mmol/L (98-107); CREATININE 1.72 mg/dL (0.7-1.3); MEAN CORPUSCULAR HEMOGLOBIN 33.1 pg (27.5-34.5); MEAN CORPUSCULAR HGB CONC 33.5 g/dL (33.2-36.2); PLATELET COUNT 259 x10^3/uL (130-400); RED BLOOD COUNT 3.48 x10^6/uL (4.38-5.82); RED CELL DISTRIBUTION WIDTH 13.7 % (9.4-14.8)
[2021-01-14 04:21] LABS: MD YES
[2021-01-14 04:26] LABS: <PLATELET ESTIMATE> ADEQUATE; <PLT MORPHOLOGY> NORMAL PLT MORPH; ANISOCYTOSIS 1+; BAND#(MANUAL) 0.99 x10^3/uL; BANDS%(MANUAL) 7 % (0-7); HYPOCHROMIA 1+; LYMPH#(MANUAL) 0.56 x10^3/uL (1-3.4); LYMPHS% (MANUAL) 4 % (22-44); METAMYELOCYTES# (MANUAL) 0.28 x10^3/uL (0-0); METAMYELOCYTES% (MANUAL) 2 % (0-1); MONOS#(MANUAL) 0.56 x10^3/uL (0.3-2.7); MONOS% (MANUAL) 4 % (2-9); MYELOCYTES# (MANUAL) 0.14 x10^3/uL (0-0); MYELOCYTES% (MANUAL) 1 % (0-0); SEG#(MANUAL) 11.56 x10^3/uL (1.8-6.8); SEGS% (MANUAL) 82 % (42-75)
[2021-01-14] MEDS: FENTANYL PF 2,500 MCG in SODIUM CHLORIDE 0.9% 200 ML IV PRN (07:59)
[2021-01-14] MEDS: SENNA/DOCUSATE TABLET PO/NG SCH (08:54)
[2021-01-14] MEDS: MIDAZOLAM HCL 100 MG in SODIUM CHLORIDE 0.9% 80 ML IV PRN (13:00)
[2021-01-14] MEDS: FAMOTIDINE 20 MG/2 ML IVPush SCH (20:21)
[2021-01-14] MEDS: ALBUMIN HUMAN 25% 100 ML IV PRN (21:40)
[2021-01-14] MEDS ORDERED: NOREPINEPHRINE 1 MG/ML, 4ML ONE (21:51)
[2021-01-14] MEDS: DEXAMETHASONE 4 MG/ML, 1ML IVPush SCH (23:04)
[2021-01-15] MEDS: VECURONIUM 50 MG in SODIUM CHLORIDE 0.9% 50 ML IV PRN ×3 (01:02→10:44)
[2021-01-15] MEDS: ALBUTEROL SULFATE 2.5 MG/3 ML NPPB SCH ×6 (03:00→23:00)
[2021-01-15] MEDS: INSULIN LISPRO 100 UNITS/ML, PEN SQ-INSULIN SCH ×4 (03:19→22:07)
[2021-01-15] MEDS: LABETALOL 5MG/ML, 20ML IVPush PRN (03:24)
[2021-01-15 03:37] LABS: MEAN CORPUSCULAR HEMOGLOBIN 32.9 pg (27.5-34.5); MEAN CORPUSCULAR HGB CONC 33.1 g/dL (33.2-36.2); MEAN PLATELET VOLUME 8.8 fL (7.4-10.4); PLATELET COUNT 257 x10^3/uL (130-400); RED BLOOD COUNT 3.51 x10^6/uL (4.38-5.82); RED CELL DISTRIBUTION WIDTH 13.6 % (9.4-14.8)
[2021-01-15 03:38] LABS: ANION GAP 7 mmol/L (5-15); CALCIUM 9.1 mg/dL (8.5-10.1); CHLORIDE 102 mmol/L (98-107); CREATININE 1.47 mg/dL (0.7-1.3); TRIGLYCERIDES 109 mg/dL (50-200)
[2021-01-15 03:53] LABS: MD YES
[2021-01-15 04:11] LABS: ANISOCYTOSIS 1+; BAND#(MANUAL) 0.16 x10^3/uL; BANDS%(MANUAL) 1 % (0-7); LYMPHS% (MANUAL) 5 % (22-44); METAMYELOCYTES# (MANUAL) 0.32 x10^3/uL (0-0); METAMYELOCYTES% (MANUAL) 2 % (0-1); MONOS#(MANUAL) 0.48 x10^3/uL (0.3-2.7); MONOS% (MANUAL) 3 % (2-9); MYELOCYTES# (MANUAL) 0.16 x10^3/uL (0-0); MYELOCYTES% (MANUAL) 1 % (0-0); SEG#(MANUAL) 14.08 x10^3/uL (1.8-6.8); SEGS% (MANUAL) 88 % (42-75)
[2021-01-15 04:12] LABS: <PLATELET ESTIMATE> ADEQUATE; <PLT MORPHOLOGY> NORMAL PLT MORPH; SCHISTOCYTES 1+
[2021-01-15] MEDS: PIPERACILLIN/TAZO/PMX 2.25GM 50 ML IVPB SCH ×3 (06:21→18:00)
[2021-01-15] MEDS: SENNA/DOCUSATE TABLET PO/NG SCH (08:30)
[2021-01-15] MEDS: FENTANYL PF 2,500 MCG in SODIUM CHLORIDE 0.9% 200 ML IV PRN (12:04)
[2021-01-15] MEDS: MIDAZOLAM HCL 100 MG in SODIUM CHLORIDE 0.9% 80 ML IV PRN (16:37)
[2021-01-15] MEDS: FAMOTIDINE 20 MG/2 ML IVPush SCH (22:06)
[2021-01-15] MEDS: DEXAMETHASONE 4 MG/ML, 1ML IVPush SCH (22:13)
[2021-01-16] MEDS: PIPERACILLIN/TAZO/PMX 2.25GM 50 ML IVPB SCH ×4 (01:02→20:30)
[2021-01-16] MEDS: FENTANYL PF 2,500 MCG in SODIUM CHLORIDE 0.9% 200 ML IV PRN ×2 (01:18→15:53)
[2021-01-16] MEDS: ALBUTEROL SULFATE 2.5 MG/3 ML NPPB SCH ×6 (03:35→22:50)
[2021-01-16] MEDS: INSULIN LISPRO 100 UNITS/ML, PEN SQ-INSULIN SCH ×4 (04:43→20:45)
[2021-01-16] MEDS: MIDAZOLAM HCL 100 MG in SODIUM CHLORIDE 0.9% 80 ML IV PRN ×2 (04:43→20:36)
[2021-01-16] MEDS: ARTIFICIAL TEARS OINT 3.5 GM EACHEYE PRN (04:45)
[2021-01-16 07:08] LABS: MEAN CORPUSCULAR HEMOGLOBIN 33.4 pg (27.5-34.5); MEAN PLATELET VOLUME 9.3 fL (7.4-10.4); PLATELET COUNT 231 x10^3/uL (130-400); RED BLOOD COUNT 3.24 x10^6/uL (4.38-5.82); RED CELL DISTRIBUTION WIDTH 13.5 % (9.4-14.8)
[2021-01-16 07:14] LABS: ALANINE AMINOTRANSFERASE 34 U/L (12-78); ALBUMIN 3.5 g/dL (3.4-5.0); ANION GAP 7 mmol/L (5-15); CALCIUM 9.6 mg/dL (8.5-10.1); CHLORIDE 107 mmol/L (98-107); CREATININE 1.82 mg/dL (0.7-1.3)
[2021-01-16 07:17] LABS: ALKALINE PHOSPHATASE 47 U/L (45-117); BILIRUBIN,TOTAL 0.6 mg/dL (0.2-1.0); TOTAL PROTEIN 6.6 g/dL (6.4-8.2)
[2021-01-16 07:57] LABS: MD YES
[2021-01-16 08:02] LABS: <PLATELET ESTIMATE> ADEQUATE; <PLT MORPHOLOGY> NORMAL PLT MORPH; BAND#(MANUAL) 0.17 x10^3/uL; BANDS%(MANUAL) 1 % (0-7); LYMPH#(MANUAL) 0.17 x10^3/uL (1-3.4); LYMPHS% (MANUAL) 1 % (22-44); MONOS#(MANUAL) 0.99 x10^3/uL (0.3-2.7); MONOS% (MANUAL) 6 % (2-9); MYELOCYTES# (MANUAL) 0.17 x10^3/uL (0-0); MYELOCYTES% (MANUAL) 1 % (0-0); SCHISTOCYTES 1+; SEG#(MANUAL) 15.02 x10^3/uL (1.8-6.8); SEGS% (MANUAL) 91 % (42-75)
[2021-01-16] MEDS: NOREPINEPHRINE 8 MG in SODIUM CHLORIDE 0.9% 242 ML IV PRN (10:25)
[2021-01-16] MEDS: FAMOTIDINE 20 MG/2 ML IVPush SCH (20:30)
[2021-01-17] MEDS: NOREPINEPHRINE 8 MG in SODIUM CHLORIDE 0.9% 242 ML IV PRN ×2 (00:17→20:18)
[2021-01-17] MEDS: DEXAMETHASONE 4 MG/ML, 1ML IVPush SCH (00:17)
[2021-01-17] MEDS: PIPERACILLIN/TAZO/PMX 2.25GM 50 ML IVPB SCH ×4 (00:54→19:58)
[2021-01-17] MEDS: ALBUTEROL SULFATE 2.5 MG/3 ML NPPB SCH ×6 (02:24→22:30)
[2021-01-17 04:43] LABS: BASOPHILS % (AUTO) 1 % (0-1); EOSINOPHILS % (AUTO) 0 % (1-7); LYMPHOCYTES % (AUTO) 1 % (22-44); MEAN CORPUSCULAR HEMOGLOBIN 33.3 pg (27.5-34.5); MEAN CORPUSCULAR HGB CONC 33.4 g/dL (33.2-36.2); MEAN PLATELET VOLUME 9.1 fL (7.4-10.4); MONOCYTES % (AUTO) 5 % (2-9); NEUTROPHILS % (AUTO) 93 % (42-75); PLATELET COUNT 265 x10^3/uL (130-400); RED BLOOD COUNT 3.31 x10^6/uL (4.38-5.82); RED CELL DISTRIBUTION WIDTH 13.4 % (9.4-14.8)
[2021-01-17 04:48] LABS: ANION GAP 8 mmol/L (5-15); CALCIUM 8.7 mg/dL (8.5-10.1); CHLORIDE 104 mmol/L (98-107); CREATININE 1.75 mg/dL (0.7-1.3)
[2021-01-17] MEDS: INSULIN LISPRO 100 UNITS/ML, PEN SQ-INSULIN SCH ×4 (05:02→21:00)
[2021-01-17] MEDS: FENTANYL PF 2,500 MCG in SODIUM CHLORIDE 0.9% 200 ML IV PRN ×2 (05:08→20:17)
[2021-01-17 05:44] LABS: MD SCAN
[2021-01-17] MEDS: FAMOTIDINE 20 MG/2 ML IVPush SCH ×2 (09:46→20:47)
[2021-01-17] MEDS: MIDAZOLAM HCL 100 MG in SODIUM CHLORIDE 0.9% 80 ML IV PRN (09:53)
[2021-01-17] MEDS ORDERED: LIDOCAINE 1%, 10ML ONE (10:06)
[2021-01-17] MEDS: FUROSEMIDE 40 MG/4 ML IV SCH ×2 (11:29→20:47)
[2021-01-17] MEDS ORDERED: POTASSIUM CHLORIDE 20 MEQ PACKET PO SCH (21:00)
[2021-01-18] MEDS: DEXAMETHASONE 4 MG/ML, 1ML IVPush SCH (01:08)
[2021-01-18] MEDS: PIPERACILLIN/TAZO/PMX 2.25GM 50 ML IVPB SCH ×4 (02:17→19:31)
[2021-01-18] MEDS: NOREPINEPHRINE 8 MG in SODIUM CHLORIDE 0.9% 242 ML IV PRN (02:19)
[2021-01-18] MEDS: ALBUTEROL SULFATE 2.5 MG/3 ML NPPB SCH ×6 (02:29→23:00)
[2021-01-18] MEDS: INSULIN LISPRO 100 UNITS/ML, PEN SQ-INSULIN SCH ×4 (03:00→20:25)
[2021-01-18 03:20] LABS: BASOPHILS % (AUTO) 1 % (0-1); EOSINOPHILS % (AUTO) 1 % (1-7); LYMPHOCYTES % (AUTO) 3 % (22-44); MEAN CORPUSCULAR HEMOGLOBIN 33.7 pg (27.5-34.5); MEAN CORPUSCULAR HGB CONC 33.8 g/dL (33.2-36.2); MEAN PLATELET VOLUME 9.1 fL (7.4-10.4); MONOCYTES % (AUTO) 10 % (2-9); NEUTROPHILS % (AUTO) 86 % (42-75); PLATELET COUNT 206 x10^3/uL (130-400); RED BLOOD COUNT 3.09 x10^6/uL (4.38-5.82); RED CELL DISTRIBUTION WIDTH 13.5 % (9.4-14.8)
[2021-01-18 03:26] LABS: MD NO
[2021-01-18 03:27] LABS: ANION GAP 7 mmol/L (5-15); CALCIUM 8.8 mg/dL (8.5-10.1); CHLORIDE 110 mmol/L (98-107); CREATININE 1.64 mg/dL (0.7-1.3); TRIGLYCERIDES 94 mg/dL (50-200)
[2021-01-18] MEDS: FAMOTIDINE 20 MG/2 ML IVPush SCH ×2 (08:42→20:17)
[2021-01-18] MEDS: POTASSIUM CHLORIDE 20 MEQ PACKET PO SCH ×3 (08:42→20:18)
[2021-01-18] MEDS: FUROSEMIDE 40 MG/4 ML IV SCH ×2 (08:43→20:17)
[2021-01-18] MEDS: MIDAZOLAM HCL 100 MG in SODIUM CHLORIDE 0.9% 80 ML IV PRN (08:58)
[2021-01-18] MEDS: FENTANYL PF 2,500 MCG in SODIUM CHLORIDE 0.9% 200 ML IV PRN (16:43)
[2021-01-18] MEDS: OXYcodone IR 5MG TABLET PO PRN (20:19)
[2021-01-19] MEDS: DEXAMETHASONE 4 MG/ML, 1ML IVPush SCH (00:07)
[2021-01-19] MEDS: PIPERACILLIN/TAZO/PMX 2.25GM 50 ML IVPB SCH ×2 (02:04→08:22)
[2021-01-19] MEDS: ALBUTEROL SULFATE 2.5 MG/3 ML NPPB SCH ×6 (03:00→23:30)
[2021-01-19] MEDS: INSULIN LISPRO 100 UNITS/ML, PEN SQ-INSULIN SCH ×4 (03:13→21:00)
[2021-01-19 03:21] LABS: BASOPHILS % (AUTO) 0 % (0-1); EOSINOPHILS % (AUTO) 1 % (1-7); LYMPHOCYTES % (AUTO) 2 % (22-44); MEAN CORPUSCULAR HEMOGLOBIN 33.2 pg (27.5-34.5); MEAN CORPUSCULAR HGB CONC 33.2 g/dL (33.2-36.2); MEAN PLATELET VOLUME 9.5 fL (7.4-10.4); MONOCYTES % (AUTO) 8 % (2-9); NEUTROPHILS % (AUTO) 89 % (42-75); PLATELET COUNT 224 x10^3/uL (130-400); RED BLOOD COUNT 3.39 x10^6/uL (4.38-5.82); RED CELL DISTRIBUTION WIDTH 13.4 % (9.4-14.8)
[2021-01-19 03:23] LABS: MD NO
[2021-01-19 03:31] LABS: ANION GAP 8 mmol/L (5-15); CALCIUM 9.7 mg/dL (8.5-10.1); CHLORIDE 114 mmol/L (98-107)
[2021-01-19] MEDS: POTASSIUM CHLORIDE 20 MEQ PACKET PO SCH (08:23)
[2021-01-19] MEDS: FAMOTIDINE 20 MG/2 ML IVPush SCH ×2 (08:23→20:21)
[2021-01-19] MEDS ORDERED: FUROSEMIDE 40 MG/4 ML IV SCH (09:00)
[2021-01-19] MEDS: PIPERACILLIN/TAZO 3.375 GM in DEXTROSE 5% 50 ML IV SCH ×2 (13:36→19:43)
[2021-01-19] MEDS: hydrALAzine 20 MG/ML, 1ML IVPush PRN (13:37)
[2021-01-19] MEDS: FENTANYL PF 2,500 MCG in SODIUM CHLORIDE 0.9% 200 ML IV PRN (16:26)
[2021-01-19] MEDS: MIDAZOLAM HCL 100 MG in SODIUM CHLORIDE 0.9% 80 ML IV PRN (16:27)
[2021-01-19] MEDS: OXYcodone IR 5MG TABLET PO PRN (18:31)
[2021-01-19] MEDS: ACETAMINOPHEN 325 MG TABLET PO PRN (20:21)
[2021-01-19] MEDS: morphine SULFATE 10 MG/ML, 1ML IVPush PRN (23:26)
[2021-01-20] MEDS: PIPERACILLIN/TAZO 3.375 GM in DEXTROSE 5% 50 ML IV SCH ×4 (00:39→20:08)
[2021-01-20] MEDS: INSULIN LISPRO 100 UNITS/ML, PEN SQ-INSULIN SCH ×4 (03:00→21:00)
[2021-01-20] MEDS: ALBUTEROL SULFATE 2.5 MG/3 ML NPPB SCH ×6 (03:00→22:44)
[2021-01-20 03:22] LABS: MEAN CORPUSCULAR HEMOGLOBIN 33.7 pg (27.5-34.5); MEAN CORPUSCULAR HGB CONC 33.1 g/dL (33.2-36.2); MEAN PLATELET VOLUME 9.6 fL (7.4-10.4); PLATELET COUNT 220 x10^3/uL (130-400); RED BLOOD COUNT 3.14 x10^6/uL (4.38-5.82); RED CELL DISTRIBUTION WIDTH 13.9 % (9.4-14.8)
[2021-01-20 03:33] LABS: ANION GAP 6 mmol/L (5-15); CALCIUM 9.7 mg/dL (8.5-10.1); CHLORIDE 120 mmol/L (98-107); CREATININE 1.52 mg/dL (0.7-1.3)
[2021-01-20 04:03] LABS: MD YES
[2021-01-20 04:04] LABS: EOS#(MANUAL) 0.15 x10^3/uL (0.0-0.4); EOS% (MANUAL) 1 % (1-7); LYMPH#(MANUAL) 0.45 x10^3/uL (1-3.4); LYMPHS% (MANUAL) 3 % (22-44); MONOS#(MANUAL) 1.81 x10^3/uL (0.3-2.7); MONOS% (MANUAL) 12 % (2-9); SEG#(MANUAL) 12.68 x10^3/uL (1.8-6.8); SEGS% (MANUAL) 84 % (42-75)
[2021-01-20 04:05] LABS: ANISOCYTOSIS 1+
[2021-01-20 04:06] LABS: <PLATELET ESTIMATE> ADEQUATE; <PLT MORPHOLOGY> NORMAL PLT MORPH
[2021-01-20] MEDS: DEXMEDETOMIDINE 200 MCG in SODIUM CHLORIDE 0.9% 48 ML IV PRN ×3 (08:52→16:08)
[2021-01-20] MEDS: PSYLLIUM PACKET PO SCH (08:52)
[2021-01-20] MEDS: FAMOTIDINE 20 MG/2 ML IVPush SCH ×2 (08:53→21:14)
[2021-01-20] MEDS ORDERED: SODIUM CHLORIDE 0.45% 1,000 ML IV SCH (10:30)
[2021-01-20] MEDS: FENTANYL PF 2,500 MCG in SODIUM CHLORIDE 0.9% 200 ML IV PRN (11:47)
[2021-01-20 12:50] LABS: MICROSCOPIC INDICATED
[2021-01-20] MEDS: ACETAMINOPHEN 325 MG TABLET PO PRN (13:35)
[2021-01-20] MEDS ORDERED: SODIUM CHLORIDE 0.9% 1,000 ML IV SCH (14:00)
[2021-01-20] MEDS: DEXMEDETOMIDINE 400 MCG in SODIUM CHLORIDE 0.9% 96 ML IV PRN (20:08)
[2021-01-21] MEDS: PIPERACILLIN/TAZO 3.375 GM in DEXTROSE 5% 50 ML IV SCH ×4 (02:14→20:14)
[2021-01-21] MEDS: INSULIN LISPRO 100 UNITS/ML, PEN SQ-INSULIN SCH ×4 (03:00→20:14)
[2021-01-21] MEDS: ALBUTEROL SULFATE 2.5 MG/3 ML NPPB SCH ×6 (03:00→23:00)
[2021-01-21] MEDS: DEXMEDETOMIDINE 400 MCG in SODIUM CHLORIDE 0.9% 96 ML IV PRN ×2 (03:34→08:36)
[2021-01-21 04:41] LABS: BASOPHILS % (AUTO) 0 % (0-1); EOSINOPHILS % (AUTO) 5 % (1-7); LYMPHOCYTES % (AUTO) 5 % (22-44); MEAN CORPUSCULAR HEMOGLOBIN 33.1 pg (27.5-34.5); MEAN CORPUSCULAR HGB CONC 32.8 g/dL (33.2-36.2); MEAN PLATELET VOLUME 9.8 fL (7.4-10.4); MONOCYTES % (AUTO) 12 % (2-9); NEUTROPHILS % (AUTO) 77 % (42-75); PLATELET COUNT 200 x10^3/uL (130-400); RED BLOOD COUNT 2.93 x10^6/uL (4.38-5.82); RED CELL DISTRIBUTION WIDTH 13.3 % (9.4-14.8)
[2021-01-21 04:49] LABS: ANION GAP 7 mmol/L (5-15); CALCIUM 9.1 mg/dL (8.5-10.1); CHLORIDE 122 mmol/L (98-107); CREATININE 1.31 mg/dL (0.7-1.3); TRIGLYCERIDES 153 mg/dL (50-200)
[2021-01-21 05:49] LABS: MD SCAN
[2021-01-21] MEDS: DEXTROSE 5% 1,000 ML IV SCH ×2 (06:48→16:30)
[2021-01-21] MEDS: FAMOTIDINE 20 MG/2 ML IVPush SCH ×2 (07:36→20:14)
[2021-01-21] MEDS: PSYLLIUM PACKET PO SCH (07:36)
[2021-01-21] MEDS: ACETAMINOPHEN 325 MG TABLET PO PRN ×2 (07:37→21:48)
[2021-01-21] MEDS: FENTANYL PF 2,500 MCG in SODIUM CHLORIDE 0.9% 200 ML IV PRN (08:37)
[2021-01-21 10:22] LABS: ALBUMIN 2.8 g/dL (3.4-5.0); BILIRUBIN, DIRECT 0.1 mg/dL (0.1-0.2)
[2021-01-21 10:25] LABS: BILIRUBIN,INDIRECT 0.4 mg/dL (0.0-2.0); BILIRUBIN,TOTAL 0.5 mg/dL (0.2-1.0); TOTAL PROTEIN 6.5 g/dL (6.4-8.2)
[2021-01-22] MEDS: DEXMEDETOMIDINE 400 MCG in SODIUM CHLORIDE 0.9% 96 ML IV PRN ×4 (00:12→23:41)
[2021-01-22] MEDS: FENTANYL PF 2,500 MCG in SODIUM CHLORIDE 0.9% 200 ML IV PRN ×2 (02:45→20:49)
[2021-01-22] MEDS: PIPERACILLIN/TAZO 3.375 GM in DEXTROSE 5% 50 ML IV SCH ×4 (02:45→19:43)
[2021-01-22] MEDS: INSULIN LISPRO 100 UNITS/ML, PEN SQ-INSULIN SCH ×4 (03:00→20:49)
[2021-01-22] MEDS: ALBUTEROL SULFATE 2.5 MG/3 ML NPPB SCH ×6 (03:00→22:37)
[2021-01-22 04:26] LABS: BASOPHILS % (AUTO) 1 % (0-1); EOSINOPHILS % (AUTO) 5 % (1-7); LYMPHOCYTES % (AUTO) 7 % (22-44); MEAN CORPUSCULAR HEMOGLOBIN 33.8 pg (27.5-34.5); MEAN CORPUSCULAR HGB CONC 33.2 g/dL (33.2-36.2); MEAN PLATELET VOLUME 10.1 fL (7.4-10.4); MONOCYTES % (AUTO) 11 % (2-9); NEUTROPHILS % (AUTO) 77 % (42-75); PLATELET COUNT 182 x10^3/uL (130-400); RED BLOOD COUNT 2.69 x10^6/uL (4.38-5.82); RED CELL DISTRIBUTION WIDTH 13.2 % (9.4-14.8)
[2021-01-22 04:29] LABS: MD NO
[2021-01-22 04:35] LABS: ANION GAP 7 mmol/L (5-15); CALCIUM 8.6 mg/dL (8.5-10.1); CHLORIDE 121 mmol/L (98-107); CREATININE 1.18 mg/dL (0.7-1.3)
[2021-01-22] MEDS: ACETAMINOPHEN 325 MG TABLET PO PRN ×2 (05:00→14:33)
[2021-01-22] MEDS: FAMOTIDINE 20 MG/2 ML IVPush SCH ×2 (09:08→20:49)
[2021-01-22] MEDS: PSYLLIUM PACKET PO SCH (09:08)
[2021-01-23] MEDS: PIPERACILLIN/TAZO 3.375 GM in DEXTROSE 5% 50 ML IV SCH (02:36)
[2021-01-23] MEDS: ALBUTEROL SULFATE 2.5 MG/3 ML NPPB SCH ×4 (03:00→14:16)
[2021-01-23] MEDS: INSULIN LISPRO 100 UNITS/ML, PEN SQ-INSULIN SCH ×4 (03:00→20:58)
[2021-01-23 04:37] LABS: MEAN CORPUSCULAR HEMOGLOBIN 34.1 pg (27.5-34.5); MEAN CORPUSCULAR HGB CONC 33.7 g/dL (33.2-36.2); MEAN PLATELET VOLUME 10.1 fL (7.4-10.4); PLATELET COUNT 143 x10^3/uL (130-400); RED BLOOD COUNT 2.59 x10^6/uL (4.38-5.82)
[2021-01-23 04:48] LABS: ANION GAP 5 mmol/L (5-15); CALCIUM 8.4 mg/dL (8.5-10.1); CHLORIDE 122 mmol/L (98-107)
[2021-01-23 04:49] LABS: CREATININE 0.96 mg/dL (0.7-1.3)
[2021-01-23 05:42] LABS: MD YES
[2021-01-23 05:45] LABS: <PLATELET ESTIMATE> ADEQUATE; <PLT MORPHOLOGY> NORMAL PLT MORPH; ANISOCYTOSIS 1+; EOS% (MANUAL) 5 % (1-7); LYMPHS% (MANUAL) 4 % (22-44); MONOS% (MANUAL) 4 % (2-9); SEGS% (MANUAL) 87 % (42-75)
[2021-01-23] MEDS ORDERED: POTASSIUM CHLORIDE 20 MEQ PACKET PO ONE (06:30)
[2021-01-23] MEDS: MEROPENEM 1 GM in SODIUM CHLORIDE 0.9% 100 ML IV SCH ×2 (09:00→18:03)
[2021-01-23] MEDS: FAMOTIDINE 20 MG/2 ML IVPush SCH ×2 (09:54→20:58)
[2021-01-23] MEDS: PSYLLIUM PACKET PO SCH (09:54)
--- NOTE | 2021-01-23 10:58 | NUR ---
01/23: TF: Vital HP, increase goal to 70 ml/hr Addendum: 01/23/21 at [address] Amended: Links added.
[2021-01-23] MEDS: DEXMEDETOMIDINE 400 MCG in SODIUM CHLORIDE 0.9% 96 ML IV PRN (14:31)
[2021-01-23] MEDS ORDERED: ALBUTEROL HFA 90 MCG/SPRAY INH PRN (19:30)
[2021-01-23] MEDS: OXYcodone IR 5MG TABLET PO PRN (22:50)
[2021-01-24] MEDS: MEROPENEM 1 GM in SODIUM CHLORIDE 0.9% 100 ML IV SCH ×3 (00:24→17:21)
[2021-01-24] MEDS: INSULIN LISPRO 100 UNITS/ML, PEN SQ-INSULIN SCH ×4 (03:00→20:54)
[2021-01-24 04:37] LABS: BASOPHILS % (AUTO) 1 % (0-1); EOSINOPHILS % (AUTO) 8 % (1-7); LYMPHOCYTES % (AUTO) 9 % (22-44); MD NO; MEAN CORPUSCULAR HEMOGLOBIN 33.8 pg (27.5-34.5); MEAN CORPUSCULAR HGB CONC 33.7 g/dL (33.2-36.2); MEAN PLATELET VOLUME 10.3 fL (7.4-10.4); MONOCYTES % (AUTO) 9 % (2-9); NEUTROPHILS % (AUTO) 74 % (42-75); PLATELET COUNT 191 x10^3/uL (130-400); RED BLOOD COUNT 2.69 x10^6/uL (4.38-5.82); RED CELL DISTRIBUTION WIDTH 13.3 % (9.4-14.8)
[2021-01-24 04:42] LABS: ANION GAP 8 mmol/L (5-15); CALCIUM 8.5 mg/dL (8.5-10.1); CHLORIDE 123 mmol/L (98-107)
[2021-01-24 04:44] LABS: CREATININE 0.66 mg/dL (0.7-1.3)
[2021-01-24] MEDS: OXYcodone IR 5MG TABLET PO PRN (05:42)
[2021-01-24] MEDS ORDERED: FUROSEMIDE 40 MG/4 ML IV SCH (07:30)
[2021-01-24] MEDS: POTASSIUM CHLORIDE 20 MEQ TAB.ER.PRT PO SCH ×2 (07:46→17:21)
[2021-01-24] MEDS: FAMOTIDINE 20 MG/2 ML IVPush SCH ×2 (07:47→20:50)
[2021-01-24] MEDS: PSYLLIUM PACKET PO SCH (07:47)
[2021-01-24 11:15] LABS: ALANINE AMINOTRANSFERASE 189 U/L (12-78); ALBUMIN 2.5 g/dL (3.4-5.0); ANION GAP 5 mmol/L (5-15); CHLORIDE 120 mmol/L (98-107); CREATININE 0.72 mg/dL (0.7-1.3)
[2021-01-24 11:17] LABS: ALKALINE PHOSPHATASE 66 U/L (45-117); BILIRUBIN,TOTAL 0.4 mg/dL (0.2-1.0); TOTAL PROTEIN 6.9 g/dL (6.4-8.2)
[2021-01-24] MEDS ORDERED: FUROSEMIDE 40 MG/4 ML IV ONE (17:00)
[2021-01-25] MEDS: MEROPENEM 1 GM in SODIUM CHLORIDE 0.9% 100 ML IV SCH ×3 (02:11→16:47)
[2021-01-25] MEDS: INSULIN LISPRO 100 UNITS/ML, PEN SQ-INSULIN SCH ×4 (02:14→21:00)
[2021-01-25 05:14] LABS: CHLORIDE 122 mmol/L (98-107)
[2021-01-25 05:22] LABS: ALANINE AMINOTRANSFERASE 200 U/L (12-78); ALBUMIN 2.4 g/dL (3.4-5.0); ALKALINE PHOSPHATASE 71 U/L (45-117); ANION GAP 4 mmol/L (5-15); BILIRUBIN,TOTAL 0.3 mg/dL (0.2-1.0); CALCIUM 9.7 mg/dL (8.5-10.1); CREATININE 0.79 mg/dL (0.7-1.3); TOTAL PROTEIN 7.3 g/dL (6.4-8.2)
[2021-01-25] MEDS ORDERED: POTASSIUM CHLORIDE 20 MEQ PACKET PO ONE (06:30)
[2021-01-25] MEDS: CHOLESTYRAMINE LIGHT 4GM PACKET PO SCH ×2 (09:04→21:41)
[2021-01-25] MEDS: DEXTROSE 5% 1,000 ML IV SCH (09:36)
--- NOTE | 2021-01-25 11:33 | NUR ---
Vital AF goal: 75 ml/hr off propofol Addendum: 01/25/21 at [address] Amended: Links added.
[2021-01-26] MEDS: MEROPENEM 1 GM in SODIUM CHLORIDE 0.9% 100 ML IV SCH ×3 (00:55→17:05)
[2021-01-26] MEDS: INSULIN LISPRO 100 UNITS/ML, PEN SQ-INSULIN SCH ×4 (03:00→20:03)
[2021-01-26 04:46] LABS: ANION GAP 4 mmol/L (5-15); CHLORIDE 122 mmol/L (98-107); CREATININE 0.64 mg/dL (0.7-1.3)
[2021-01-26] MEDS: DEXTROSE 5% 1,000 ML IV SCH (10:02)
[2021-01-26] MEDS: CHOLESTYRAMINE LIGHT 4GM PACKET PO SCH ×2 (10:06→20:17)
[2021-01-26 13:05] VITALS: BP 118/78
[2021-01-26 19:44] VITALS: BP 124/91
[2021-01-26 23:08] LABS: BASOPHILS % (AUTO) 1 % (0-1); EOSINOPHILS % (AUTO) 9 % (1-7); LYMPHOCYTES % (AUTO) 12 % (22-44); MEAN CORPUSCULAR HEMOGLOBIN 33.2 pg (27.5-34.5); MEAN CORPUSCULAR HGB CONC 33.6 g/dL (33.2-36.2); MEAN PLATELET VOLUME 10.4 fL (7.4-10.4); MONOCYTES % (AUTO) 11 % (2-9); NEUTROPHILS % (AUTO) 68 % (42-75); PLATELET COUNT 314 x10^3/uL (130-400); RED BLOOD COUNT 3.14 x10^6/uL (4.38-5.82); RED CELL DISTRIBUTION WIDTH 13.4 % (9.4-14.8)
[2021-01-26 23:12] LABS: ALANINE AMINOTRANSFERASE 185 U/L (12-78); ALBUMIN 2.4 g/dL (3.4-5.0); ANION GAP 7 mmol/L (5-15); CALCIUM 9.3 mg/dL (8.5-10.1); CHLORIDE 119 mmol/L (98-107); CREATININE 0.83 mg/dL (0.7-1.3)
[2021-01-26 23:14] LABS: ALKALINE PHOSPHATASE 72 U/L (45-117); BILIRUBIN,TOTAL 0.4 mg/dL (0.2-1.0); TOTAL PROTEIN 7.2 g/dL (6.4-8.2)
[2021-01-26 23:17] LABS: MD NO
[2021-01-27] MEDS: MEROPENEM 1 GM in SODIUM CHLORIDE 0.9% 100 ML IV SCH ×3 (00:44→17:38)
[2021-01-27 00:55] VITALS: BP 122/86
[2021-01-27] MEDS: INSULIN LISPRO 100 UNITS/ML, PEN SQ-INSULIN SCH ×4 (03:00→21:00)
[2021-01-27 06:46] LABS: ALBUMIN 2.3 g/dL (3.4-5.0); ANION GAP 5 mmol/L (5-15); CALCIUM 9.1 mg/dL (8.5-10.1); CHLORIDE 120 mmol/L (98-107); CREATININE 0.79 mg/dL (0.7-1.3)
[2021-01-27 07:09] VITALS: BP 132/84
[2021-01-27] MEDS: DEXTROSE 5% 1,000 ML IV SCH (08:46)
[2021-01-27 13:31] VITALS: BP 135/90
[2021-01-27 20:52] VITALS: BP 118/78
[2021-01-28 00:05] VITALS: BP 122/82
[2021-01-28] MEDS: MEROPENEM 1 GM in SODIUM CHLORIDE 0.9% 100 ML IV SCH ×3 (01:22→17:18)
[2021-01-28] MEDS: INSULIN LISPRO 100 UNITS/ML, PEN SQ-INSULIN SCH ×4 (03:00→20:07)
[2021-01-28] MEDS: DEXTROSE 5% 1,000 ML IV SCH ×2 (03:03→13:10)
[2021-01-28 05:39] LABS: BASOPHILS % (AUTO) 1 % (0-1); EOSINOPHILS % (AUTO) 10 % (1-7); LYMPHOCYTES % (AUTO) 17 % (22-44); MEAN CORPUSCULAR HEMOGLOBIN 33.7 pg (27.5-34.5); MEAN CORPUSCULAR HGB CONC 33.8 g/dL (33.2-36.2); MEAN PLATELET VOLUME 9.7 fL (7.4-10.4); MONOCYTES % (AUTO) 11 % (2-9); NEUTROPHILS % (AUTO) 61 % (42-75); PLATELET COUNT 304 x10^3/uL (130-400); RED BLOOD COUNT 2.73 x10^6/uL (4.38-5.82); RED CELL DISTRIBUTION WIDTH 12.9 % (9.4-14.8)
[2021-01-28 05:41] LABS: MD NO
[2021-01-28 05:54] LABS: CHLORIDE 118 mmol/L (98-107)
[2021-01-28 06:01] LABS: ALANINE AMINOTRANSFERASE 137 U/L (12-78); ALKALINE PHOSPHATASE 63 U/L (45-117); ANION GAP 6 mmol/L (5-15); BILIRUBIN,TOTAL 0.3 mg/dL (0.2-1.0); CALCIUM 8.4 mg/dL (8.5-10.1); TOTAL PROTEIN 6.1 g/dL (6.4-8.2)
[2021-01-28 07:10] VITALS: BP 146/79
[2021-01-28 13:59] VITALS: BP 114/77
[2021-01-28 14:55] LABS: MICROSCOPIC AUTO
[2021-01-28] MEDS: ACETAMINOPHEN 325 MG TABLET PO PRN (17:34)
[2021-01-28 19:23] VITALS: BP 124/81
[2021-01-29 00:17] VITALS: BP 128/83
[2021-01-29] MEDS: DEXTROSE 5% 1,000 ML IV SCH (00:17)
[2021-01-29] MEDS: MEROPENEM 1 GM in SODIUM CHLORIDE 0.9% 100 ML IV SCH ×3 (01:04→17:36)
[2021-01-29] MEDS: INSULIN LISPRO 100 UNITS/ML, PEN SQ-INSULIN SCH ×4 (03:00→21:00)
[2021-01-29 05:58] LABS: BASOPHILS % (AUTO) 1 % (0-1); EOSINOPHILS % (AUTO) 11 % (1-7); LYMPHOCYTES % (AUTO) 11 % (22-44); MEAN CORPUSCULAR HEMOGLOBIN 33.8 pg (27.5-34.5); MEAN CORPUSCULAR HGB CONC 34.3 g/dL (33.2-36.2); MEAN PLATELET VOLUME 9.6 fL (7.4-10.4); MONOCYTES % (AUTO) 11 % (2-9); NEUTROPHILS % (AUTO) 66 % (42-75); PLATELET COUNT 322 x10^3/uL (130-400); RED CELL DISTRIBUTION WIDTH 12.8 % (9.4-14.8)
[2021-01-29 05:59] LABS: ALANINE AMINOTRANSFERASE 123 U/L (12-78); ALBUMIN 2.1 g/dL (3.4-5.0); ANION GAP 5 mmol/L (5-15); CALCIUM 8.3 mg/dL (8.5-10.1); CHLORIDE 114 mmol/L (98-107); CREATININE 0.63 mg/dL (0.7-1.3)
[2021-01-29 06:02] LABS: ALKALINE PHOSPHATASE 68 U/L (45-117); BILIRUBIN,TOTAL 0.3 mg/dL (0.2-1.0); TOTAL PROTEIN 6.3 g/dL (6.4-8.2)
[2021-01-29 06:23] LABS: MD SCAN
[2021-01-29] MEDS ORDERED: POTASSIUM CHLORIDE 20 MEQ TAB.ER.PRT PO ONE (06:30)
[2021-01-29 07:10] VITALS: BP 129/86
[2021-01-29 13:14] VITALS: BP 136/95
[2021-01-29 19:45] VITALS: BP 127/85
[2021-01-30 00:12] VITALS: BP 130/89
[2021-01-30] MEDS: MEROPENEM 1 GM in SODIUM CHLORIDE 0.9% 100 ML IV SCH ×2 (01:06→08:56)
[2021-01-30] MEDS: INSULIN LISPRO 100 UNITS/ML, PEN SQ-INSULIN SCH ×4 (03:00→21:00)
[2021-01-30 06:01] LABS: BASOPHILS % (AUTO) 1 % (0-1); EOSINOPHILS % (AUTO) 10 % (1-7); LYMPHOCYTES % (AUTO) 17 % (22-44); MEAN CORPUSCULAR HEMOGLOBIN 33.8 pg (27.5-34.5); MEAN CORPUSCULAR HGB CONC 34.4 g/dL (33.2-36.2); MEAN PLATELET VOLUME 9.2 fL (7.4-10.4); MONOCYTES % (AUTO) 12 % (2-9); NEUTROPHILS % (AUTO) 60 % (42-75); PLATELET COUNT 353 x10^3/uL (130-400); RED BLOOD COUNT 2.75 x10^6/uL (4.38-5.82); RED CELL DISTRIBUTION WIDTH 12.9 % (9.4-14.8)
[2021-01-30 06:07] LABS: MD NO
[2021-01-30 06:14] LABS: ALBUMIN 2.1 g/dL (3.4-5.0); ANION GAP 5 mmol/L (5-15); CALCIUM 8.3 mg/dL (8.5-10.1); CHLORIDE 113 mmol/L (98-107)
[2021-01-30 06:16] LABS: CREATININE 0.61 mg/dL (0.7-1.3)
[2021-01-30 08:14] VITALS: BP 119/76
[2021-01-30] MEDS: POTASSIUM CHLORIDE 20 MEQ TAB.ER.PRT PO SCH ×2 (08:20→17:27)
[2021-01-30] MEDS: DEXTROSE 5% 1,000 ML IV SCH ×2 (09:44→22:16)
[2021-01-30 14:25] VITALS: BP 116/84
[2021-01-30 18:36] VITALS: BP 114/79
[2021-01-31 01:26] VITALS: BP 109/76
[2021-01-31] MEDS: INSULIN LISPRO 100 UNITS/ML, PEN SQ-INSULIN SCH ×4 (03:00→21:46)
[2021-01-31 07:06] VITALS: BP 118/79
[2021-01-31 12:06] VITALS: BP 114/73
[2021-01-31] MEDS: DEXTROSE 5% 1,000 ML IV SCH (12:20)
[2021-01-31] MEDS ORDERED: HEPARIN wt. based STROKE protocol MC PRN (13:00)
[2021-01-31] MEDS ORDERED: DO NOT GIVE XX PRN (13:00)
[2021-01-31] MEDS ORDERED: HEPARIN 25,000 UNITS/250ML PMX 250 ML IV PRN (13:00)
[2021-01-31] MEDS: HEPARIN 25,000 UNITS/250ML PMX 250 ML IV PRN (15:27)
[2021-01-31 18:58] VITALS: BP 114/77
[2021-02-01 01:40] VITALS: BP 103/66
[2021-02-01] MEDS: INSULIN LISPRO 100 UNITS/ML, PEN SQ-INSULIN SCH ×4 (03:06→21:08)
[2021-02-01 05:45] LABS: BASOPHILS % (AUTO) 1 % (0-1); EOSINOPHILS % (AUTO) 7 % (1-7); LYMPHOCYTES % (AUTO) 19 % (22-44); MEAN CORPUSCULAR HEMOGLOBIN 33.5 pg (27.5-34.5); MEAN CORPUSCULAR HGB CONC 34.2 g/dL (33.2-36.2); MEAN PLATELET VOLUME 8.5 fL (7.4-10.4); MONOCYTES % (AUTO) 12 % (2-9); NEUTROPHILS % (AUTO) 62 % (42-75); PLATELET COUNT 387 x10^3/uL (130-400); RED BLOOD COUNT 2.82 x10^6/uL (4.38-5.82); RED CELL DISTRIBUTION WIDTH 13.1 % (9.4-14.8)
[2021-02-01 05:46] LABS: MD NO
[2021-02-01 05:50] LABS: ANION GAP 5 mmol/L (5-15); CALCIUM 8.1 mg/dL (8.5-10.1); CHLORIDE 109 mmol/L (98-107); CREATININE 0.56 mg/dL (0.7-1.3)
[2021-02-01 06:54] VITALS: BP 110/78
[2021-02-01 13:24] VITALS: BP 111/74
[2021-02-01 19:50] VITALS: BP 106/71
[2021-02-02] MEDS: HEPARIN 25,000 UNITS/250ML PMX 250 ML IV PRN (01:33)
[2021-02-02 02:40] VITALS: BP 108/72
[2021-02-02] MEDS: INSULIN LISPRO 100 UNITS/ML, PEN SQ-INSULIN SCH ×4 (03:11→21:00)
[2021-02-02 05:24] LABS: MEAN CORPUSCULAR HEMOGLOBIN 34.1 pg (27.5-34.5); MEAN CORPUSCULAR HGB CONC 34.7 g/dL (33.2-36.2); MEAN PLATELET VOLUME 8.2 fL (7.4-10.4); PLATELET COUNT 442 x10^3/uL (130-400); RED BLOOD COUNT 2.73 x10^6/uL (4.38-5.82); RED CELL DISTRIBUTION WIDTH 13.1 % (9.4-14.8)
[2021-02-02 05:39] LABS: CHLORIDE 108 mmol/L (98-107)
[2021-02-02 05:45] LABS: ALANINE AMINOTRANSFERASE 61 U/L (12-78); ALKALINE PHOSPHATASE 72 U/L (45-117); ANION GAP 4 mmol/L (5-15); BILIRUBIN,TOTAL 0.2 mg/dL (0.2-1.0); CALCIUM 8.3 mg/dL (8.5-10.1); CREATININE 0.56 mg/dL (0.7-1.3); TOTAL PROTEIN 6.2 g/dL (6.4-8.2)
[2021-02-02 06:03] LABS: MD YES
[2021-02-02 06:04] LABS: BASOS#(MANUAL) 0.06 x10^3/uL (0-0.1); BASOS% (MANUAL) 1 % (0-1); EOS#(MANUAL) 0.18 x10^3/uL (0.0-0.4); EOS% (MANUAL) 3 % (1-7); LYMPH#(MANUAL) 0.92 x10^3/uL (1-3.4); LYMPHS% (MANUAL) 15 % (22-44); METAMYELOCYTES# (MANUAL) 0.12 x10^3/uL (0-0); METAMYELOCYTES% (MANUAL) 2 % (0-1); MONOS#(MANUAL) 0.49 x10^3/uL (0.3-2.7); MONOS% (MANUAL) 8 % (2-9); SEG#(MANUAL) 4.33 x10^3/uL (1.8-6.8); SEGS% (MANUAL) 71 % (42-75)
[2021-02-02 06:05] LABS: <PLATELET ESTIMATE> INCREASED; <PLT MORPHOLOGY> NORMAL PLT MORPH; ANISOCYTOSIS 1+; POLYCHROMASIA 1+
[2021-02-02 14:37] VITALS: BP 132/79
[2021-02-02 20:00] VITALS: BP 115/73
[2021-02-02] MEDS: APIXABAN 5 MG TABLET PO SCH (21:10)
[2021-02-03 01:32] VITALS: BP 132/74
[2021-02-03] MEDS: INSULIN LISPRO 100 UNITS/ML, PEN SQ-INSULIN SCH ×2 (03:00→09:00)
[2021-02-03 06:49] VITALS: BP 116/77
[2021-02-03] MEDS: APIXABAN 5 MG TABLET PO SCH (09:38)
[2021-02-03] MEDS ORDERED: INSU100I11 SQ-INSULIN (11:49)
[2021-02-03] MEDS ORDERED: ALBU18HF INH (11:49)
[2021-02-03] MEDS ORDERED: APIX5TAB PO (11:49)
[2021-02-03] MEDS ORDERED: LACT20SO13 PO (11:49)
[2021-02-03 13:58] VITALS: BP 121/77
== END 2021-02-03 15:32 | DRG 870 ==
LOC: ED 21:03 → CCU 21:17 → 3N 01-26 08:58
PROVIDERS: ADMIT Internal Medicine; ATTEND Internal Medicine
PROC: 5A09357 Assistance with Respiratory Ventilation, Less than 24 Consecutive Hours, Continuous Positive Airway Pressure (ICD-10-PCS; principal; 2021-01-03)
PROC: 5A1955Z Respiratory Ventilation, Greater than 96 Consecutive Hours (ICD-10-PCS; 2021-01-03)
PROC: 0BH17EZ Insertion of Endotracheal Airway into Trachea, Via Natural or Artificial Opening (ICD-10-PCS; 2021-01-03)
PROC: 0T9B70Z Drainage of Bladder with Drainage Device, Via Natural or Artificial Opening (ICD-10-PCS; 2021-01-03)
PROC: 02HV33Z Insertion of Infusion Device into Superior Vena Cava, Percutaneous Approach (ICD-10-PCS; 2021-01-04)
PROC: B548ZZA Ultrasonography of Superior Vena Cava, Guidance (ICD-10-PCS; 2021-01-04)
PROC: 06H03DZ Insertion of Intraluminal Device into Inferior Vena Cava, Percutaneous Approach (ICD-10-PCS; 2021-01-17)
DX: A41.89 Other specified sepsis (principal); E43 Unspecified severe protein-calorie malnutrition; G93.41 Metabolic encephalopathy; I26.99 Other pulmonary embolism without acute cor pulmonale; I50.43 Acute on chronic combined systolic (congestive) and diastolic (congestive) heart failure; J12.82 Pneumonia due to coronavirus disease 2019; J96.01 Acute respiratory failure with hypoxia; N17.0 Acute kidney failure with tubular necrosis; R65.21 Severe sepsis with septic shock; U07.1 COVID-19; D68.69 Other thrombophilia; E87.0 Hyperosmolality and hypernatremia; E87.1 Hypo-osmolality and hyponatremia; E87.2 Acidosis; I62.9 Nontraumatic intracranial hemorrhage, unspecified; G81.91 Hemiplegia, unspecified affecting right dominant side; I82.403 Acute embolism and thrombosis of unspecified deep veins of lower extremity, bilateral; I82.629 Acute embolism and thrombosis of deep veins of unspecified upper extremity; Z99.11 Dependence on respirator [ventilator] status; D63.8 Anemia in other chronic diseases classified elsewhere; E03.9 Hypothyroidism, unspecified; E66.9 Obesity, unspecified; E78.00 Pure hypercholesterolemia, unspecified; E78.5 Hyperlipidemia, unspecified; G47.33 Obstructive sleep apnea (adult) (pediatric); H57.02 Anisocoria; H70.93 Unspecified mastoiditis, bilateral; I11.0 Hypertensive heart disease with heart failure; J45.909 Unspecified asthma, uncomplicated; M19.012 Primary osteoarthritis, left shoulder; T38.0X5A Adverse effect of glucocorticoids and synthetic analogues, initial encounter; R13.10 Dysphagia, unspecified; Z78.9 Other specified health status; Z79.01 Long term (current) use of anticoagulants; Z82.49 Family history of ischemic heart disease and other diseases of the circulatory system; Z82.61 Family history of arthritis; Z95.828 Presence of other vascular implants and grafts; Z88.8 Allergy status to other drugs, medicaments and biological substances; Z68.34 Body mass index [BMI] 34.0-34.9, adult
CPT/HCPCS: 36415; 36600; 74230; 77001; 82805; 84145; 87400; 96365; 96375; 99291; C8929; J3490; J7613; 36556; 37191; 70450; 71045; 71275; 76770; 76937; 80048; 80053; 80061; 80069; 80076; 81001; 82140; 82803; 82962; 83036; 83605; 83690; 83735; 84100; 84443; 84478; 84550; 85025; 85520; 86140; 86705; 86706; 87040; 87070; 87081; 87205; 87324; 87340; 87880; 90935; 93005; 93970; 94002; 94003; 94150; 94640; 94660; 94690; C1880; G0378; J0456; J0461; J0696; J1100; J1644; J1940; J2185; J2250; J2543; J2704; J3010; J3262; J7070; P9047; Q9957; Q9967; C1751; J0360; J1642; J1815; J2270; J7030; J7050; U0003